=== PATIENT | female | born 1995 | race Caucasian/White ===

== ENCOUNTER → 2017-03-15 | Outpatient (CLI) | payer OTHER ==
[2017-03-15 17:11] LABS: BASO % 0.1 %; BASO ABS # 0.01 K/uL (0-0.2); EOS % 0.1 %; HEMATOCRIT 39.3 % (37-47); IG% 0.2 %; LYMPH % 7.3 %; LYMPH ABS # 0.78 K/uL (1.2-3.4); MEAN CELL VOLUME 95.4 fL (80-100); MEAN CORPUSCULAR HEMOGLOBIN 33.3 pg (25-34); MEAN PLATELET VOLUME 10.9 fL (7.4-10.4); MONO % 7.4 %; NEUT % 84.9 %; PLATELET COUNT 186 K/uL (130-400); RED BLOOD COUNT 4.12 M/uL (4.2-5.4); WHITE BLOOD COUNT 10.62 K/uL (4.8-10.8)
[2017-03-15 17:17] LABS: COMPLETE YES; MEAN CORPUSCULAR HGB CONC 34.9 g/dl (32-36)
[2017-03-15 18:26] LABS: ALB/GLOB RATIO 0.7 (0.9-2); ALKALINE PHOSPHATASE 101 U/L (45-117); ALT/SGPT 16 U/L (12-78); AST/SGOT 18 U/L (15-37); BLOOD UREA NITROGEN 12 mg/dl (7-18); BUN/CREATININE RATIO 18.3 (10-20); CALCIUM 9.4 mg/dl (8.5-10.1); CARBON DIOXIDE 28 mmol/L (21-32); CHLORIDE 105 mmol/L (98-107); CREATININE 0.64 mg/dl (0.60-1.20); GLUCOSE 90 mg/dl (70-99); POTASSIUM 3.8 mmol/L (3.5-5.1); SODIUM 139 mmol/L (136-145)
== END | disposition home or self-care (01) ==
LOC: C.LAB 16:48
PROVIDERS: ATTEND Family Medicine
DX: R10.9 Unspecified abdominal pain (principal); R19.7 Diarrhea, unspecified

== ENCOUNTER → 2017-03-15 | Outpatient (CLI) | payer OTHER ==
--- NOTE | 2017-03-15 16:54 | DIAGNOSTIC IMAGING REPORT ---
ABDOMEN 2 VIEW W/ PA CHEST CLINICAL HISTORY: 22 years-old Female presenting with ABD PAIN. TECHNIQUE: PA view of the chest and supine and upright views of the abdomen were obtained. COMPARISON: 03/07/2016. FINDINGS: Cardiomediastinal silhouette normal. Lungs and pleural spaces clear. Normal bowel gas pattern. No evidence of free intraperitoneal gas, pneumatosis, or portal venous gas. Osseous structures normal. IMPRESSION: 1. No acute cardiopulmonary disease. No radiographic evidence of acute intra-abdominal pathology. Electronically signed by: Mark Osborne M.D. 03/15/2017 4:53 PM Dictated Date/Time: 03/15/2017 4:52 PM
== END | disposition home or self-care (01) ==
LOC: C.RDSM 11:35
PROVIDERS: ATTEND Family Medicine
DX: R10.9 Unspecified abdominal pain (principal)

== ENCOUNTER → 2017-04-10 | Day surgery (SDC) | payer OTHER ==
[~2017-04-10] VITALS: Ht 165.1 cm; Wt 65.5 kg
[~2017-04-10] MED LIST: AMPH10TA2 PO; AMPH20CA3 PO; BISM262T3 PO; FENTANYL CITRATE INJ 50 MCG/1 ML 2 ML VIAL ONE; MIDAZOLAM HCL 5 MG/ML 1 ML VIAL ONE; NAPR1TAB9 PO; SIME1CHW17 PO; SODIUM CHLORIDE 0.9% 500ML 500 ML IV ONE; ZNTT/150 PO
[2017-04-10 13:00] VITALS: Ht 165.1 cm; Wt 65.5 kg
--- NOTE | 2017-04-10 13:51 | Endo History and Physical ---
History & Physical Date of Service: Apr 10, 2017. Chief Complaint: EPIGASTRIC PAIN Referring Physician: DR. KRISHNAMURTHY History of Present Illness 22 yo CF who presents for EGD secondary to epigastric abdominal pain. Past Surgical History Hx Cardiac Surgery: No Hx Internal Defibrillator: No Hx Pacemaker: No Hx Abdominal Surgery: No Hx of Implantable Prosthesis: No Hx Post-Op Nausea and Vomiting: No Hx Cancer Surgery: No Hx Thoracic Surgery: No Hx Orthopedic: No Hx Urinary Tract Surgery: No Family History None Social History Smoking Status: Former Smoker Hx Substance Use: No Hx Alcohol Use: Yes (1-2 GLASSES EVERY 2 WEEKS) Allergies Coded Allergies: No Known Allergies (Verified , 04/10/17) Current Medications Reported Home Medications Medications Dose Route/Sig Max Daily Dose Days Date Category Aleve (Naproxen) 220 Mg Tab 440 Mg PO DAILY PRN 03/17/17 Reported Zantac (Ranitidine HCl) 150 Mg Tab 150 Mg PO BID PRN 03/17/17 Reported Gas Relief (Simethicone) 80 Mg Chw 80 Mg PO TID PRN 03/17/17 Reported Pepto Bismol Chew Tab (Bismuth Subsalicylate) 262 Mg Tab 1 Tab PO BID PRN 03/17/17 Reported Adderall Xr 20MG (Amphetamine-Dextroamphetamine 20MG) 1 Cap Cap 20 Mg PO QAM 03/17/17 Reported Adderall 10MG (Amphetamine-Dextroamphetamine 10MG) 1 Tab Tab 10 Mg PO QAFTERNOON 03/17/17 Reported Vital Signs Weight (Kilograms): 65.45 Height (Feet): 5 Height (Inches): 5 Date Time Temp Pulse Resp B/P (MAP) Pulse Ox O2 Delivery O2 Flow Rate FiO2 04/10/17 13:17 36.8 72 18 129/71 (90) 98 Room Air Physical Exam General Appearance: WD/WN, no apparent distress Respiratory/Chest: Auscultation: breath sounds normal Cardiovascular: Heart Auscultation: RRR Abdomen: Bowel Sounds: normal Inspection & Palpation: soft, non-distended, no tenderness, guarding & rebound Assessment and Plan Assessment: 22 yo CF who presents for EGD secondary to epigastric abdominal pain. Plan: Proceed with EGD.
--- NOTE | 2017-04-10 14:20 | Discharge Instructions ---
Endoscopy Patient Instructions Date / Procedure(s) Performed Apr 10, 2017. EGD Allergy Information Coded Allergies: No Known Allergies (Verified , 04/10/17) Discharge Date / Findings Apr 10, 2017. Duodenal biopsies Gastric antrum biopsies Medication Instructions OK to resume all medications today as prescribed Reported Home Medications Medications Dose Route/Sig Max Daily Dose Days Date Category Aleve (Naproxen) 220 Mg Tab 440 Mg PO DAILY PRN 03/17/17 Reported Zantac (Ranitidine HCl) 150 Mg Tab 150 Mg PO BID PRN 03/17/17 Reported Gas Relief (Simethicone) 80 Mg Chw 80 Mg PO TID PRN 03/17/17 Reported Pepto Bismol Chew Tab (Bismuth Subsalicylate) 262 Mg Tab 1 Tab PO BID PRN 03/17/17 Reported Adderall Xr 20MG (Amphetamine-Dextroamphetamine 20MG) 1 Cap Cap 20 Mg PO QAM 03/17/17 Reported Adderall 10MG (Amphetamine-Dextroamphetamine 10MG) 1 Tab Tab 10 Mg PO QAFTERNOON 03/17/17 Reported Provider Instructions Activity Restrictions - No exercising or heavy lifting for 24 hours. - Do not drink alcohol the day of the procedure. - Do not drive a car or operate machinery until the day after the procedure. - Do not make any important decisions or sign important papers in 24 hours after the procedure. Following Day: - Return to full activity which may include returning to work/school. Diet Start your diet with liquids and light foods (jello, soup, juice, toast). Then eat your usual diet if not nauseated. Treatment For Common After Affects For mild abdominal pain, bloating, or excessive gas: - Rest - Eat lightly - Lie on right side Follow-Up Information Follow-up with DR. KRISHNAMURTHY as scheduled Anesthesia Information What You Should Know You have had a procedure that required some medicine to reduce anxiety and discomfort. This treatment is called moderate sedation. After receiving the treatment, you may be sleepy, but you will be able to breathe on your own. The effects of the treatment may last for several hours. Follow these instructions along with Activity/Diet recommendations noted above: * Do NOT do anything where dizziness or clumsiness would be dangerous. * Rest quietly at home today, then you can be up and about tomorrow. * Have a responsible person stay with you the rest of today. * You may have had an I.V. today. If so, you may take the dressing off later today. Recommendations Call your doctor if: * Trouble breathing * Continuous vomiting for more than 24 hours * Temperature above 101 degrees * Severe abdominal pain or bloating * Pain not relieved by pain medicine ordered * There is increased drainage or redness from any incision * A large amount of rectal bleeding greater than 2-3 tablespoons. (If you had a polyp/s removed or have hemorrhoids, a small amount of blood - from the rectum is to be expected.) * You have any unanswered questions or concerns. IN THE EVENT OF A SERIOUS EMERGENCY, GO TO THE NEAREST EMERGENCY ROOM Your discharge instructions were prepared by provider Curly Monsivais. Patient Instructions Signature Page June Teran Patient (or Guardian) Signature/Date: I have read and understand the instructions given to me by my caregivers. Caregiver/RN/Doctor Signature/Date: The above-named patient and/or guardian has received patient instructions on this date. + Original Patient Signature Page (only) stays with chart. Please make copy for patient.
--- NOTE | 2017-04-10 14:25 | GI REPORT ---
Procedure Date: 04/10/2017 1:23 PM Procedure: Upper GI endoscopy Indications: Epigastric abdominal pain Medicines: Fentanyl 125 micrograms IV, Midazolam 7 mg IV Complications: No immediate complications. Estimated Blood Loss: Estimated blood loss: none. Procedure: Pre-Anesthesia Assessment: - Prior to the procedure, a History and Physical was performed, and patient medications and allergies were reviewed. The patient's tolerance of previous anesthesia was also reviewed. The risks and benefits of the procedure and the sedation options and risks were discussed with the patient. All questions were answered, and informed consent was obtained. Prior Anticoagulants: The patient has taken no previous anticoagulant or antiplatelet agents. ASA Grade Assessment: II - A patient with mild systemic disease. After reviewing the risks and benefits, the patient was deemed in satisfactory condition to undergo the procedure. After obtaining informed consent, the endoscope was passed under direct vision. Throughout the procedure, the patient's blood pressure, pulse, and oxygen saturations were monitored continuously. The scope was introduced through the mouth, and advanced to the second part of duodenum. The upper GI endoscopy was accomplished without difficulty. The patient tolerated the procedure well. Findings: The esophagus was normal. The entire examined stomach was normal. Biopsies were taken with a cold forceps for Helicobacter pylori testing. The examined duodenum was normal. Biopsies for histology were taken with a cold forceps for evaluation of celiac disease. Impression: - Normal esophagus. - Normal stomach. Biopsied. - Normal examined duodenum. Biopsied. Recommendation: - Resume previous diet. - Continue present medications. - Await pathology results. - Return to primary care physician as previously scheduled. Curly Monsivais, 04/10/2017 2:25:27 PM This report has been signed electronically. Note Initiated On: 04/10/2017 1:23 PM I attest to the content of the Intraoperative Record and orders documented therein, exceptions below
[2017-04-10 14:49] VITALS: BP 121/77; PULSE 70; O2SAT 99
== END | disposition home or self-care (01) ==
LOC: C.GI 12:34
PROVIDERS: ATTEND Internal Medicine
DX: R10.13 Epigastric pain (principal)